=== PATIENT | male | born 1940 | race Caucasian/White ===

== ENCOUNTER 2017-11-14 08:35 | Emergency (ER) | payer MEDICARE, OTHER ==
[~2017-11-14] VITALS: Ht 170.2 cm; Wt 96.0 kg
[~2017-11-14 08:35] MED LIST: LORT7.5T3 PO; PROT40TA PO; TOPR25TA2 PO
[2017-11-14 08:38] VITALS: BP 206/114; PULSE 62; RESP 16; TEMP 97.6; O2SAT 97
[2017-11-14 08:55] VITALS: BP 197/108
--- NOTE | 2017-11-14 08:55 | PD ---
HPI Chief Complaint: Skin Problem Time Seen by Provider: 08:44 Travel History International Travel<30 days: No Contact w/Intl Traveler<30days: No Traveled to known affect area: No History of Present Illness HPI This 77-year-old male is complaining of pain in his left wrist. He does not recall any direct injury to the wrist. He is left-handed and uses his arm a lot. He was doing some infection yesterday. He had some pain along the ulnar side of the hand yesterday and last night he started having a lot of pain in his left wrist. The pain is very well localized to an area on the dorsum of the wrist on the ulnar side. He has not had fever or chills. He does have arthritis. He has no history of gout. He has not been treated for hypertension in the past though his blood pressure has been elevated here PFSH Past Medical History GERD: Yes Hypertension: Yes Social History Alcohol Use: Yes (OCC) Tobacco Use: No Substance Use: No Allergies-Medications (Allergen,Severity, Reaction): Coded Allergies: penicillin G (Unverified Allergy, Severe, HIVES, 11/14/17) Reported Meds & Prescriptions Reported Meds & Active Scripts Active Lortab 7.5/500 (Acetaminophen/Hydrocodone Bitart) Tab 1 Tab PO Q4HPRN PAIN Reported Protonix (Pantoprazole Sodium) 40 Mg Tabdr 40 Mg PO DAILY Toprol Xl (Metoprolol Succinate) 25 Mg Tabcr 25 Mg PO DAILY Physical Exam Narrative GENERAL: Well-developed male SKIN: Focused skin assessment warm/dry. HEAD: Atraumatic. Normocephalic. EYES: Pupils equal and round. No scleral icterus. No injection or drainage. ENT: No nasal bleeding or discharge. Mucous membranes pink and moist. NECK: Trachea midline. No JVD. MUSCULOSKELETAL: No obvious deformities. No clubbing. No cyanosis. No edema. Left wrist does not show any erythema or warmth. There is good range of motion. There is a well localized tenderness on the dorsum of the wrist on the ulnar side. NEUROLOGICAL: Awake and alert. No obvious cranial nerve deficits. Motor grossly within normal limits. Normal speech. PSYCHIATRIC: Appropriate mood and affect; insight and judgment normal. Data Data Last Documented VS Vital Signs Date Time Temp Pulse Resp B/P (MAP) Pulse Ox O2 Delivery O2 Flow Rate FiO2 11/14/17 08:55 66 16 11/14/17 08:38 97.6 206/114 (144) 97 Orders Orders Wrist, Complete ([id number]) (11/14/17 08:48) MDM Medical Decision Making Medical Screen Exam Complete: Yes Emergency Medical Condition: Yes Medical Record Reviewed: Yes Differential Diagnosis Differential includes arthritis, tendinitis Narrative Course X-ray of the wrist shows the bones to be intact. There is a faint calcification adjacent to the ulnar styloid. Patient's blood pressure was initially quite elevated and has come down progressively with observation. I recommend that he track his blood pressures at home and follow up with his primary care physician Diagnosis Primary Impression: Tendinitis of left wrist Additional Instructions: Take ibuprofen 400 mg 3 or 4 times daily Disposition: 01 DISCHARGE HOME Condition: Stable Moris Friedman MD Nov 14, 2017 08:55
[2017-11-14] MEDS ORDERED: VITA10002 PO (09:13)
[2017-11-14 09:14] VITALS: BP 178/92
--- NOTE | 2017-11-14 09:25 | RADRPT ---
EXAM DATE/TIME: 11/14/2017 09:04 [facility] COMPARISON: No previous studies available for comparison. INDICATIONS : Left medial wrist pain, no known injury. MEDICAL HISTORY : None. SURGICAL HISTORY : None. ENCOUNTER: Initial ACUITY: 2 days PAIN SCORE: 3/10 LOCATION: Left medial wrist FINDINGS: Three view examination of the left wrist demonstrates no soft tissue swelling, dislocation, or fractu re. The carpal bones are in normal alignment. The joint spaces are maintained. Bony mineralization is normal. Mild degenerative changes at the first carpometacarpal joint. CONCLUSION: No acute fracture or joint dislocation. Marco Antonio Lopez MD on November 14, 2017 at 9:22 Board Certified Radiologist. This report was verified electronically.
== END 2017-11-14 09:42 | disposition home or self-care (01) ==
LOC: PHED 08:35
DX: M77.9 Enthesopathy, unspecified (principal); K21.9 Gastro-esophageal reflux disease without esophagitis; I10 Essential (primary) hypertension; Z79.899 Other long term (current) drug therapy; Z88.0 Allergy status to penicillin
CPT/HCPCS: 73110; 99283